=== PATIENT | male | born 1990 | race Caucasian/White ===

== ENCOUNTER 2019-09-30 10:26 | Emergency (ER) | payer OTHER, SELFPAY ==
--- NOTE | 2019-09-30 10:37 | ED.URI ---
HPI - URI/Sore Throat General Chief Complaint: Upper Respiratory Infection Stated Complaint: upper respiratory Time Seen by Provider: 09/30/19 10:37 Source: patient and RN notes reviewed History of Present Illness HPI Narrative: Patient is a 29-year-old male that presents the urgent care with complaints of congestion, sinus pressure, cough. Patient denies of any fever, nausea, vomiting. Patient has not taken anything for his symptoms [id number]. No other acute complaints. No acute distress noted. Patient aware the plan of care. Related Data Home Medications Medication Instructions Recorded Confirmed lorazepam 0.5 mg PO TID PRN 09/30/19 09/30/19 metoprolol succinate 25 mg PO DAILY 09/30/19 09/30/19 Allergies Allergy/AdvReac Type Severity Reaction Status Date / Time No Known Allergies Allergy Unknown Verified 09/30/19 10:44 Review of Systems Review of Systems: Narrative: CONSTITUTIONAL: Denies fever, chills, or sweats. EYES: Denies visual changes, redness, or discharge. ENT: Reports of sinus congestion, postnasal drainage CARDIOVASCULAR: Denies chest pain, palpitations, or edema. RESPIRATORY: Reports a mild cough without dyspnea GASTROINTESTINAL: Denies abdominal pain, nausea, vomiting, or diarrhea. GENITOURINARY: Denies dysuria or hematuria. SKIN: Denies rash or itching. MUSCULOSKELETAL: Denies back pain, joint pain, or myalgia. NEUROLOGIC: Denies headache, numbness, or weakness. PMFSH Comments At the time of my signature, I reviewed and agree with the nursing past medical, surgical, social, and family history. There is no relevant family history pertinent to the patient complaint. Exam Narrative: Exam Narrative: GENERAL: This is a well-nourished, well-developed patient, appears slightly anxious HEAD: normocephalic, atraumatic. EYES: PERRL. Sclera clear/white. Vision is grossly intact. EARS: External ears normal, auditory canals clear and without drainage, TMs normal without perforation. Hearing grossly intact. NOSE: External nose normal with no obvious nasal discharge, nares without redness, no rhinorrhea. THROAT: Mucous membranes moist, posterior pharynx clear. NECK: Neck supple CARDIOVASCULAR: Regular rate and rhythm without murmurs, gallops, or rubs. RESPIRATORY: Clear to auscultation. Breath sounds equal bilaterally. No wheezes, rales, or rhonchi. SKIN: warm, intact with no suspicious lesions or rash, good texture and turgor. NEURO: awake, alert, and oriented to person, place and time. There were no obvious focal neurologic abnormalities. EXTREMITIES: No clubbing, cyanosis, or edema. Course Vital Signs Vital signs: Vital Signs Temperature 97.9 F 09/30/19 10:40 Pulse Rate 65 09/30/19 10:40 Respiratory Rate 20 09/30/19 10:40 Blood Pressure 132/92 H 09/30/19 10:40 Pulse Oximetry 100 09/30/19 10:40 Temperature 97.9 F 09/30/19 10:40 Pulse Rate 65 09/30/19 10:40 Respiratory Rate 09/30/19 10:40 Blood Pressure 132/92 H 09/30/19 10:40 Pulse Oximetry 100 09/30/19 10:40 Reviewed-patient is informed that they may have pre-hypertension or hypertension based on a blood pressure reading in the department. I recommend the patient call the primary care provider listed on their discharge instructions or a physician of their choice this week to arrange follow-up for further evaluation of possible pre-hypertension or hypertension. MDM - URI/Sore Throat MDM Narrative Medical decision making narrative: Advised the patient to use Claritin and Flonase for upper respiratory-like symptoms. Continue to use lorazepam as needed for anxiety. Increase fluids and rest. Use humidifier at night. Follow-up with PCP within 2 to 5 days or for worsening symptoms or failure to improve. Differential Diagnosis Differential diagnosis: Likely upper respiratory infection, otitis media, sinusitis, bronchitis, influenza and pharyngitis Critical Care Time Critical Care Time Critical Care Time: No
[2019-09-30 10:40] VITALS: BP 132/92; PULSE 65; RESP 20; TEMP 36.6; O2SAT 100
== END 2019-09-30 11:00 | disposition home or self-care (01) ==
PROVIDERS: Emergency Provider Nurse Practitioner Family; PCP Family Medicine Adolescent Medicine
DX: J06.9 Acute upper respiratory infection, unspecified (principal)
CPT/HCPCS: 99211; G0463

== ENCOUNTER 2023-11-20 08:51 | Day surgery (SDC) | payer OTHER, SELFPAY ==
[2023-10-31 13:24] VITALS: BMI 36.7
[2023-11-05 14:00] VITALS: BMI 36.3
[2023-11-12 11:57] VITALS: BMI 36.3
--- NOTE | 2023-11-12 13:12 | SUR.PREOP ---
SPOKE WITH SEBASTIAN AT DR MEDEIROS'S OFFICE. SHE STATES THAT PT'S MOTHER SPOKE WITH [facility] IN THE GI OFFICE AND WAS GIVEN [employer] BOWEL PREP INSTRUCTIONS. AND WAS ALSO TOLD TO GET THE INSTRUCTIONS ON THE GI DOCTORS WEBSITE AND THAT THE MOTHER VERBALIZED UNDERSTANDING. MOTHER WOULD ALSO RELAY INFO TO PT.
--- NOTE | 2023-11-20 07:45 | WPDANESEPPF ---
Anes - Initial Pre Proc Eval Procedure: Operation Date: 11/20/23 11:00 Proposed Procedures p Diagnostic Colonoscopy - Rubén Garvey MD Date/Time: 11/20/23 07:45 Surgeon: Rubén Garvey MD Pre Op Diagnosis: Hemorrhage of anus and rectum Patient Data Age: 33 Gender: M Height: 1.85 m Weight: 125 kg Allergies Allergy/AdvReac Type Severity Reaction Status Date / Time No Known Allergies Allergy Unknown Verified 11/20/23 09:49 Home Medications Medication Instructions Recorded Confirmed Type albuterol sulfate 90 mcg/actuation See Rx Instructions .Route 09/20/22 11/20/23 Rx aerosol inhaler .COMPLEX #9 grams buspirone 10 mg tablet See Rx Instructions .Route 10/27/22 11/20/23 Rx .COMPLEX #60 tabs lorazepam 2 mg tablet 1 mg PO BID PRN anxiety #20 tabs 08/13/23 11/20/23 Rx metoprolol succinate 50 mg See Rx Instructions .Route 11/10/23 11/20/23 Rx tablet,extended release 24 hr .COMPLEX #30 tabs pantoprazole 40 mg tablet,delayed See Rx Instructions .Route 11/17/23 11/20/23 Rx release .COMPLEX #60 tabs Patient hx anesthesia problems: none Family hx anesthesia problems: none Results Review: All pre-operative results and documents have been reviewed as part of the pre-operative evaluation. [facility] Past Medical History Medical History (Updated 11/20/23 @ 07:45 by Jose Hicks DO) Generalized anxiety disorder GERD (gastroesophageal reflux disease) Hypertension Surgical History Surgical History History of appendectomy History of arthroscopy of left shoulder Family History Family History Mother Hypertension Grandparent Cerebrovascular accident Diabetes mellitus Heart disease Other Depression Social History Social History Smoking status: Never smoker Smokeless tobacco user: chewing tobacco Second hand tobacco smoke exposure: Yes Alcohol intake: current Alcohol use details: Seldom Substance use: current Substance use type: marijuana Lack of Transportation: No Lack of Food: Never True Current Housing: I Have Housing Concerned About Future Housing: No Difficulty Paying Gas/Electric Bills: No Difficulty Paying for Meds: No Currently Unemployed: No Education: High School Diploma/GED Difficulty w/ Childcare or Family Care: No Living arrangements: alone Occupation/Education: occupation Gender identity (if verbalized by the patient): Male Sexual Orientation (if Verbalized by the Patient): Straight or Heterosexual Spiritual care concerns: No Agree to blood products: Yes Anes - Eval Final PreProcedure Day of Procedure 11/20/23 07:45 Patient weight: obese Heart: regular rate and rhythm Lungs: clear to auscultation Airway: Mallampati scale class II Neurological: alert and oriented Last oral intake: >/= 8 hours ASA classification: III Emergent: no Anesthetic plan: proceed Anesthesia type and monitoring: general GIVS and standard monitoring Results Review: All pre-operative results and documents have been reviewed as part of the pre-operative evaluation. Informed Consent: The patient's anesthetic plan and its attendant risks and benefits were discussed with the patient/family/POA. Questions were solicited and answers provided to the satisfaction of the patient/family/POA.
[2023-11-20 09:57] VITALS: BP 119/80; PULSE 62; RESP 16; TEMP 36.6; O2SAT 99; BMI 35.4
[2023-11-20] MEDS: LACTATED RINGERS 1,000 ML 150 ML IV CONT (10:17)
--- NOTE | 2023-11-20 10:32 | PM.HPGS ---
History of Present Illness History of Present Illness Consent: Risks, benefits, and alternatives have been discussed and questions answered. Patient agrees to proceed with procedure. Chief complaint: Hemorrhage of anus and rectum Narrative: Len Barber is a 33 year old male presents for colonoscopy. Patient reports bright red blood per rectum on several occasions. He denies any abdominal pain. His family history is noncontributory patient reports his weight has remained stable. Bowel habits in general are normal. Review of Systems Review of Systems: Review of systems noncontributory. [facility] Past Medical History Medical History (Updated 11/20/23 @ 07:45 by Jose Hicks DO) Generalized anxiety disorder GERD (gastroesophageal reflux disease) Hypertension Surgical History Surgical History History of appendectomy History of arthroscopy of left shoulder Family History Family History Mother Hypertension Grandparent Cerebrovascular accident Diabetes mellitus Heart disease Other Depression Social History Social History Smoking status: Never smoker Smokeless tobacco user: chewing tobacco Second hand tobacco smoke exposure: Yes Alcohol intake: current Alcohol use details: Seldom Substance use: current Substance use type: marijuana Lack of Transportation: No Lack of Food: Never True Current Housing: I Have Housing Concerned About Future Housing: No Difficulty Paying Gas/Electric Bills: No Difficulty Paying for Meds: No Currently Unemployed: No Education: High School Diploma/GED Difficulty w/ Childcare or Family Care: No Living arrangements: alone Occupation/Education: occupation Gender identity (if verbalized by the patient): Male Sexual Orientation (if Verbalized by the Patient): Straight or Heterosexual Spiritual care concerns: No Agree to blood products: Yes Meds Home Medications and Allergies Home Medications Medication Instructions Recorded Confirmed Type albuterol sulfate 90 mcg/actuation See Rx Instructions .Route 09/20/22 11/20/23 Rx aerosol inhaler .COMPLEX #9 grams buspirone 10 mg tablet See Rx Instructions .Route 10/27/22 11/20/23 Rx .COMPLEX #60 tabs lorazepam 2 mg tablet 1 mg PO BID PRN anxiety #20 tabs 12/13/23 03/21/24 Rx metoprolol succinate 50 mg See Rx Instructions .Route 11/10/23 11/20/23 Rx tablet,extended release 24 hr .COMPLEX #30 tabs pantoprazole 40 mg tablet,delayed See Rx Instructions .Route 11/17/23 11/20/23 Rx release .COMPLEX #60 tabs Allergies Allergy/AdvReac Type Severity Reaction Status Date / Time No Known Allergies Allergy Unknown Verified 11/20/23 09:49 Vital Signs Vital Signs - 24 hr 11/20/23 09:57 Temperature 98 F Pulse Rate 62 Respiratory Rate 16 Blood Pressure 119/80 Pulse Oximetry 99 Oxygen Delivery Room Air Exam Narrative: Physical exam reveals patient to be alert. Vital signs stable. HEENT exam is unremarkable. Patient is anicteric. Lungs are clear to auscultation and percussion is without murmur or extra sounds. Abdomen bowel sounds are present soft nontender with no organomegaly. Digital external rectal exam normal. Assessment and Plan Assessment and plan (1) Rectal bleeding: Code(s): K62.5 - Hemorrhage of anus and rectum Status: Acute Assessment and Plan: Patient with several episodes of rectal bleeding most suspicious for internal plan for high fiber diet further recommendations this could be.
[2023-11-20] MEDS: SIMETHICONE ORAL SUSPENSION 20 MG/0.3 ML 30 ML BOTTLE 0.6 ML IRRIGATION (11:25)
[2023-11-20 11:35] VITALS: BP 101/84; PULSE 64; RESP 22; O2SAT 97
[2023-11-20 11:45] VITALS: BP 113/84; PULSE 70; RESP 20; O2SAT 100
[2023-11-20 11:55] VITALS: BP 123/91; PULSE 55; RESP 20; O2SAT 100
--- NOTE | 2023-11-20 11:57 | WPDANESPN ---
Anes - Prog Note Post-Op Date/Time: 11/20/23 11:57 Cardiovascular status: normal Respiratory status: normal Airway patency: baseline Mental status: baseline Post-Op hydration status: normal Vital Signs: Last Vital Signs Temp 36.6 C 11/20/23 09:57 Pulse 70 11/20/23 11:45 Resp 20 11/20/23 11:45 BP 113/84 11/20/23 11:45 Pulse Ox 100 11/20/23 11:45 O2 Del Method Room Air 11/20/23 11:45 Pain Score (VAS): 0 I/O: Intake & Output 11/19/23 11/20/23 11/20/23 23:59 07:59 15:59 Intake Total 400 Balance 400 Post-procedural complaints: none Patient Feedback: Patient satisfied with anesthetic care. Other Findings: Patient vital signs back to baseline. Patient denies nausea and vomiting. Patient's pain under control. Patient OK for discharge.
== END 2023-11-20 12:01 | disposition home or self-care (01) ==
PROVIDERS: PCP Family Medicine Adolescent Medicine; Visit Provider Internal Medicine Gastroenterology
PROC: 0DJD8ZZ Inspection of Lower Intestinal Tract, Via Natural or Artificial Opening Endoscopic (ICD-10-PCS; CPT 45378; principal; 2023-11-20 11:00)
DX: K62.5 Hemorrhage of anus and rectum (principal); K64.8 Other hemorrhoids
CPT/HCPCS: 45378